=== PATIENT | male | born 1950 | race Hispanic/Latino ===

== ENCOUNTER 2016-09-01 10:17 | Outpatient (CLI) | payer OTHER ==
--- NOTE | 2016-09-01 12:31 | RAD ---
PA AND LATERAL VIEWS OF THE CHEST: HISTORY: Chest congestion. The heart size is normal. The aorta is tortuous. The lungs are expanded without confluent areas of consolidation, pneumothorax, or pleural effusions. There are mild degenerative changes in the spine and acromioclavicular joints. IMPRESSION: No radiographic evidence of acute cardiopulmonary process. POS: [facility]
== END 2016-09-01 10:18 | disposition home or self-care (01) ==
LOC: MADRAD 10:17
PROVIDERS: ATTEND Obstetrics & Gynecology
DX: R09.89 Other specified symptoms and signs involving the circulatory and respiratory systems (principal)
CPT/HCPCS: 71020

== ENCOUNTER 2017-06-17 10:34 | Outpatient (CLI) | payer OTHER ==
--- NOTE | 2017-06-17 12:13 | RAD ---
CERVICAL SPINE 3 VIEWS: HISTORY: Cervical strain, tingling. FINDINGS: There are mild degenerative changes at C5-6 and C6-7 levels. No fracture, subluxation, or bony destr uction is seen. IMPRESSION: Cervical spondylosis. RECOMMENDATION: Further evaluation with MRI is recommended. POS: [facility]
== END 2017-06-17 10:35 | disposition home or self-care (01) ==
LOC: MADRAD 10:34
PROVIDERS: ATTEND Obstetrics & Gynecology
DX: M54.2 Cervicalgia (principal); M47.892 Other spondylosis, cervical region
CPT/HCPCS: 72040